=== PATIENT | female | born 1980 | race Caucasian/White ===

== ENCOUNTER → 2023-09-24 08:17 | Outpatient (REF) | payer OTHER, SELFPAY | LOC: WDC 08:17 | PROVIDERS: ATTENDING PHYSICIAN Obstetrics & Gynecology; FAMILY PHYSICIAN Physician Assistant Medical | DX: Z12.31 Encounter for screening mammogram for malignant neoplasm of breast (principal); M17.11 Unilateral primary osteoarthritis, right knee | CPT/HCPCS: 73564; 77063; 77067 ==

== ENCOUNTER 2024-01-01 06:16 | Day surgery (SDC) | payer OTHER, SELFPAY ==
[2024-01-01 08:58] VITALS: BMI 52.6
[2024-01-01 09:10] VITALS: BP 131/68
[2024-01-01 09:15] VITALS: BMI 52.6
[2024-01-01 11:07] VITALS: BP 117/66
[2024-01-01 11:15] VITALS: BP 114/73
[2024-01-01 11:30] VITALS: BP 122/70
== END 2024-01-01 12:00 | disposition home or self-care (01) ==
LOC: SDS 06:16
PROVIDERS: ATTENDING PHYSICIAN Internal Medicine Gastroenterology
DX: Z12.11 Encounter for screening for malignant neoplasm of colon (principal); K64.0 First degree hemorrhoids
CPT/HCPCS: 45380; 88305

== ENCOUNTER → 2024-09-26 08:40 | Outpatient (REF) | payer OTHER, SELFPAY | LOC: WDC 08:40 | PROVIDERS: ATTENDING PHYSICIAN Obstetrics & Gynecology; FAMILY PHYSICIAN Family Medicine | DX: Z12.31 Encounter for screening mammogram for malignant neoplasm of breast (principal) | CPT/HCPCS: 77063; 77067 ==